=== PATIENT | female | born 1990 | race African-American/Black ===

== ENCOUNTER 2017-11-28 22:18 | Emergency (ER) | payer OTHER ==
[~2017-11-28] VITALS: Ht 149.9 cm; Wt 81.6 kg
[2017-11-28 22:31] VITALS: BP 116/60
== END 2017-11-29 00:17 | disposition home or self-care (01) ==
LOC: ER 22:18
DX: S93.402A Sprain of unspecified ligament of left ankle, initial encounter (principal); Z90.49 Acquired absence of other specified parts of digestive tract; W01.0XXA Fall on same level from slipping, tripping and stumbling without subsequent striking against object, initial encounter; Y93.89 Activity, other specified; Y99.8 Other external cause status; Y92.89 Other specified places as the place of occurrence of the external cause
CPT/HCPCS: 73610